=== PATIENT | female | born 1945 | race Caucasian/White ===

== ENCOUNTER 2017-04-03 09:47 | Emergency (ER) | payer MEDICARE, BC ==
[2017-04-03 11:18] VITALS: BP 112/55
--- NOTE | 2017-04-03 11:50 | UC ---
Respiratory Complaint HPI - HPI Summary HPI Summary: 71 yo female with cough x 2 weeks usually not productive no SOB no n/v/d lateral rib pain with cough for the past 4 days has had fever and shaking chills has had malaise and low energy - History of Current Complaint Chief Complaint: UCGeneralIllness Stated Complaint: CHILLS/SWEATS/COUGH Time Seen by Provider: 04/03/17 11:32 Hx Obtained From: Patient Onset/Duration: Gradual Onset, Lasting Weeks Character: Cough: Nonproductive Aggravating Factors: Nothing Alleviating Factors: Nothing Associated Signs And Symptoms: Positive: Fever, Chills - Allergies/Home Medications Allergies/Adverse Reactions: Allergies Allergy/AdvReac Type Severity Reaction Status Date / Time Fluocinonide Allergy Rash Verified 04/03/17 11:19 Latex Allergy Rash Verified 04/03/17 11:19 Nabumetone [From Relafen] Allergy Headache Verified 04/03/17 11:19 Penicillins Allergy Unknown Verified 04/03/17 11:19 Reaction Details Pregabalin [From Lyrica] Allergy GI Upset Verified 04/03/17 11:19 Sulfa Antibiotics Allergy Rash Verified 04/03/17 11:19 horse radish Allergy Difficulty Uncoded 04/03/17 11:19 Swallowing peanut, sesame Allergy Headache Uncoded 04/03/17 11:19 PMH/Surg Hx/FS Hx/Imm Hx Previously Healthy: Yes Endocrine History: Dyslipidemia Cardiovascular History: Hypertension Respiratory History: Bronchitis, Pneumonia - Surgical History Surgical History: Yes Surgery Procedure, Year, and Place: Right rotator cuff surgery - Family History Known Family History: Positive: Hypertension - Social History Alcohol Use: Rare Substance Use Type: None Smoking Status (MU): Never Smoked Tobacco - Immunization History Most Recent Influenza Vaccination: 2017 Review of Systems Constitutional: Fever, Chills, Fatigue Skin: Negative Eyes: Negative ENT: Negative Respiratory: Cough Cardiovascular: Negative Gastrointestinal: Negative Genitourinary: Negative Motor: Negative Neurovascular: Negative Musculoskeletal: Negative Neurological: Negative Psychological: Negative Is Patient Immunocompromised?: No All Other Systems Reviewed And Are Negative: Yes Physical Exam Triage Information Reviewed: Yes Appearance: Well-Appearing, No Pain Distress, Well-Nourished Vital Signs: Initial Vital Signs Temp 99.5 F 04/03/17 11:12 Pulse 84 04/03/17 11:12 Resp 18 11/16/17 11:12 BP 112/55 04/03/17 11:12 Pulse Ox 96 04/03/17 11:12 Vital Signs Reviewed: Yes Eyes: Positive: Conjunctiva Clear ENT: Positive: Normal ENT inspection, Uvula midline. Negative: Nasal congestion , Nasal drainage, Trismus, Muffled voice, Hoarse voice, Dental tenderness Dental: Positive: Other: - upper plate Respiratory: Positive: Lungs clear, Normal breath sounds, No respiratory distress, Rhonchi - with forced expiration Cardiovascular: Positive: RRR, No Murmur Musculoskeletal: Positive: ROM Intact, No Edema Neurological: Positive: Alert Psychological Exam: Normal Skin Exam: Normal UC Diagnostic Evaluation - Laboratory O2 Sat by Pulse Oximetry: 96 - normal/not hypoxic - Radiology Xray Interpretation: Positive (See Comments) - RIGHT LOWER LOBE CONSOLIDATION. RECOMMEND FOLLOW-UP UNTIL RESOLUTION TO EXCLUDE UNDERLYING Radiology Interpretation Completed By: Radiologist Respiratory Course/Dx - Differential Dx/Diagnosis Provider Diagnoses: Right Lower lobe pneumonia Discharge - Discharge Plan Condition: Stable Disposition: HOME Prescriptions: DOXYcycline CAP(*) [DOXYcycline 100MG CAP(*)] 100 mg PO BID #20 cap Patient Education Materials: Pneumonia (ED) Referrals: Tricia Moraes MD [Primary Care Provider] - 2 Weeks (the radiologist is suggesting that you get rexrayed to make sure the pneumonia completely resolves ...this can be done in about 3 weeks) Additional Instructions: rest fluids recheck in 2-3 days if still febrile recheck sooner for worsening symptoms
--- NOTE | 2017-04-03 12:25 | RAD ---
HISTORY: Cough COMPARISONS: None VIEWS: 4: Frontal dual-energy and lateral views of the chest. FINDINGS: CARDIOMEDIASTINAL SILHOUETTE: The cardiomediastinal silhouette is normal. MAX: The max are normal. PLEURA: The costophrenic angles are sharp. No pleural abnormalities are noted. LUNG PARENCHYMA: There is confluent alveolar opacification of the right lower lobe. ABDOMEN: The upper abdomen is clear. There is no subphrenic gas. BONES AND SOFT TISSUES: No bone or soft tissue abnormalities are noted. OTHER: None. IMPRESSION: RIGHT LOWER LOBE CONSOLIDATION. RECOMMEND FOLLOW-UP UNTIL RESOLUTION TO EXCLUDE UNDERLYING PULMONARY PARENCHYMAL PATHOLOGY. IF THE CLINICAL PRESENTATION IS NOT CONSISTENT WITH INFECTION, CONSIDER FURTHER EVALUATION WITH CONTRAST-ENHANCED CT OF THE CHEST.
== END 2017-04-03 12:40 | disposition home or self-care (01) ==
LOC: UCEAST 09:47
DX: J18.9 Pneumonia, unspecified organism (principal)
CPT/HCPCS: 71020; 99212; G0463

== ENCOUNTER 2017-11-25 10:07 | Day surgery (SDC) | payer MEDICARE, BC ==
[~2017-11-25 10:07] MED LIST: Acetaminophen TAB* 325 MG PO PRN; Buffered Lidocaine 0.9% SYRIN* 5 ML/SYR SYRINGE INTRADERM ONE
[2017-11-25] MEDS ORDERED: Tetracaine 0.5% OPTH.SOL 4 ML* 1 DROP BTL ONE (11:08)
[2017-11-25] MEDS ORDERED: Ketorolac 0.5% OPHTH (NF) 0.5 % 5 ML BTL ONE (11:08)
[2017-11-25] MEDS ORDERED: Phenylephrine 2.5% OPTH.SOL* 2 ML BTL ONE (11:08)
[2017-11-25] MEDS ORDERED: Neomycin/Polymy/Dex OPHTH.OIN* 3.5 GM ONE (11:08)
[2017-11-25] MEDS ORDERED: Tropicamide 1% OPTH.SOL* BTL ONE (11:08)
[2017-11-25] MEDS ORDERED: Cyclopentolate 1% OPTH.SOL* 2 ML BTL ONE (11:08)
[2017-11-25] MEDS ORDERED: Lidocaine 1%* 5 ML VIAL ONE (11:08)
[2017-11-25] MEDS ORDERED: fentaNYL* 50 MCG/ML 2 ML VIAL (100 MCG VIAL) ONE (12:20)
[2017-11-25] MEDS ORDERED: Midazolam* 1 MG/ML 2 ML VIAL (2 MG) ONE ×2 (12:20→12:55)
[2017-11-25 13:17] VITALS: BP 123/77
--- NOTE | 2017-11-25 14:27 | OP ---
DATE OF OPERATION/DATE OF DICTATION: 11/25/2017 - [facility] DATE OF : 1945. SURGEON: Dr. Aj Ribera. SHRINK PIT OPERATOR: None. ANESTHESIA: Topical with intravenous sedation. PRE-OP DIAGNOSIS: Cataract, left eye. POST-OP DIAGNOSIS: Cataract, left eye. OPERATIVE PROCEDURE: Phacoemulsification and cataract extraction with posterior chamber intraocular lens implant, left eye. COMPLICATIONS: None. BLOOD LOSS: None. DESCRIPTION OF PROCEDURE: The patient was brought to the operating room and received a small amount of intravenous sedation. A drop of Tetracaine was placed in her left eye. She was prepped and draped in the usual sterile fashion for ophthalmic surgery and attention was directed to the left eye where a speculum was placed. A paracentesis was created at the 5 o'clock position and 0.1 cc of 1 percent preservative-free Lidocaine was injected into the anterior chamber followed by DisCoVisc. The eye was digitally stabilized while a 2.75 mm keratome was used to create a triplanar clear corneal incision at the 3 o'clock position. A continuous curvilinear capsulorrhexis was created with a cystotome and Utrata forceps. BSS on a cannula was used to hydrodissect the lens from the capsule. Phacoemulsification was performed in a divide-and- conquer technique to create four fragments which were removed. Residual cortical material was removed with irrigation and aspiration. DisCoVisc was used to inflate the capsular bag and an AUOOTO 21.0 diopter lens was folded and inserted into the capsular bag. DisCoVisc was removed using irrigation and aspiration. BSS on a cannula was used to hydrate the corneal stroma and seal the wound. At the end of the case the pupil was round and the lens was centered. The eye was of normal pressure and the wound was water tight. The speculum was removed and topical Maxitrol ointment was placed on the surface of the eye. The eye was closed, patched and shielded and the patient was sent to the recovery room in stable condition with post operative instructions and follow-up appointment given. [id number]/[facility] #: [id number] MTDD
== END 2017-11-25 13:30 | disposition home or self-care (01) ==
LOC: OREAST 10:07
PROVIDERS: ATTEND Ophthalmology
DX: H25.12 Age-related nuclear cataract, left eye (principal); I10 Essential (primary) hypertension; E03.9 Hypothyroidism, unspecified; D75.1 Secondary polycythemia; F41.9 Anxiety disorder, unspecified; F40.240 Claustrophobia; Z68.32 Body mass index [BMI] 32.0-32.9, adult
CPT/HCPCS: A9270-GY; J2250; J3010; V2632

== ENCOUNTER 2017-12-02 06:47 | Day surgery (SDC) | payer MEDICARE, BC ==
[2017-12-02] MEDS ORDERED: Midazolam* 1 MG/ML 5 ML VIAL (5 MG) ONE (07:44)
[2017-12-02] MEDS ORDERED: fentaNYL* 50 MCG/ML 2 ML VIAL (100 MCG VIAL) ONE (07:44)
[2017-12-02] MEDS ORDERED: Cyclopentolate 1% OPTH.SOL* 2 ML BTL ONE (07:50)
[2017-12-02] MEDS ORDERED: Lidocaine 1%* 5 ML VIAL ONE (07:50)
[2017-12-02] MEDS ORDERED: Phenylephrine 2.5% OPTH.SOL* 2 ML BTL ONE (07:50)
[2017-12-02] MEDS ORDERED: Tropicamide 1% OPTH.SOL* BTL ONE (07:50)
[2017-12-02] MEDS ORDERED: Phenylephr/Ketorolac 1%/0.3% OPH DROP BTL ONE (07:50)
[2017-12-02] MEDS ORDERED: Ketorolac 0.5% OPHTH (NF) 0.5 % 5 ML BTL ONE (07:50)
[2017-12-02] MEDS ORDERED: Tetracaine 0.5% OPTH.SOL 4 ML* 1 DROP BTL ONE (07:50)
[2017-12-02] MEDS ORDERED: Neomycin/Polymy/Dex OPHTH.OIN* 3.5 GM ONE (07:50)
[2017-12-02 08:25] VITALS: BP 124/95
--- NOTE | 2017-12-02 15:58 | OP ---
DATE OF OPERATION/DICTATION: 12/02/17 - [facility] DATE OF : [birth year] SURGEON: Aj Ribera MD GYPSUM BLOCK SETTER: None. ANESTHESIA: Topical with intravenous sedation. PRE-OP DIAGNOSIS: Cataract with stigmatism, right eye. POST-OP DIAGNOSIS: Cataract with stigmatism, right eye. OPERATIVE PROCEDURE: Phacoemulsification and cataract extraction with posterior chamber intraocular lens implant, right eye. COMPLICATIONS: None. BLOOD LOSS: None. DESCRIPTION OF PROCEDURE: The patient was seen preoperatively in the holding area where she was placed in an upright position. A dorina was made at the 6 o' clock position of the limbus on the right eye. The patient was subsequently brought to the operating room and received intravenous sedation and a drop of tetracaine in her right eye. She was prepped and draped in the usual sterile fashion for ophthalmic surgery and attention was directed to the right eye where a speculum was placed. A paracentesis was created at the 11 o'clock position and 0.12 cc of 1% preservative-free lidocaine was injected into the anterior chamber followed by DisCoVisc. The eye was digitally stabilized where a 2.75-mm keratome was used to create a triplanar clear corneal incision at the 9 o'clock position. A continuous curvilinear capsulorrhexis was created with cystotome and Utrata forceps. BSS on a cannula was used to hydrodissect the lens from the capsule. Phacoemulsification was performed in a divide-and- conquer technique to create 4 fragments, which were removed. Residual cortical material was removed with irrigation and aspiration. Healon was used to inflate the capsular bag. A Real marker was used to dorina the 88-degree axis on the limbus. An [id number] of 20.5 diopter lens was folded and inserted into the capsular bag. It was dialed to the appropriate axial alignment with a Sinskey hook. The Sinskey hook remained in the eye through the paracentesis to stabilize lens while irrigation and aspiration was performed to remove viscoelastic from the eye. BSS on a cannula was used to hydrate the corneal stroma and seal the wound. At the end of the case, the pupil was round. The lens was centered, stable, and axially aligned. The eye pressure appeared normal and the wound was watertight. The speculum was removed and topical Maxitrol ointment was placed on the surface of the eye. The eye was closed, patched, and shielded, and the patient was sent to recovery room in stable condition with postoperative instructions and followup appointment given. [id number]/[facility] #: [id number] MINDY
== END 2017-12-02 08:26 | disposition home or self-care (01) ==
LOC: OREAST 06:47
PROVIDERS: ATTEND Ophthalmology
DX: H25.11 Age-related nuclear cataract, right eye (principal); H52.201 Unspecified astigmatism, right eye; E03.9 Hypothyroidism, unspecified; I10 Essential (primary) hypertension; D75.1 Secondary polycythemia; Z87.891 Personal history of nicotine dependence; R73.03 Prediabetes
CPT/HCPCS: A9270-GY; C9447; J2250; J3010; V2787